=== PATIENT | female | born 1975 | race Two or more races ===

== ENCOUNTER 2018-09-03 05:31 | Emergency (ER) | payer SELFPAY ==
[~2018-09-03] VITALS: Ht 175.3 cm; Wt 58.5 kg
--- NOTE | 2018-09-03 05:53 | NUR ---
PT PRESENTED WITH C/O FEELING DEPRESSED. PT SAYS SHE DOESNT FEEL SUICIDAL BUT DOESNT WANT TO TAKE CARE OF HERSELF. PT HERE VISITING DAUGHTER IN [place] WHO DOES NOT WANT TO SEE HER, PT LIVES IN [place], [place]. PT TEARFUL, STATED SHE HAS NO MONEY OR NO WHERE TO GO. PA AT BEDSIDE FOR L[place]ELLE
[2018-09-03] MEDS ORDERED: VENL37.52 PO (05:59)
[2018-09-03] MEDS ORDERED: LITH8SOL6 PO (05:59)
[2018-09-03] MEDS ORDERED: TRAZ-137 PO (05:59)
[2018-09-03] MEDS ORDERED: INSULIN (05:59)
--- NOTE | 2018-09-03 06:07 | NUR ---
urine sample taken to lab
[2018-09-03 06:11] VITALS: BP 100/52
--- NOTE | 2018-09-03 06:12 | NUR ---
pt resting on gurney, provided pt with warm blanket, monitors in place, siderails up x2, call light within reach. awaiting urine and lab results
[2018-09-03 06:14] LABS: BASOPHILS # (AUTO) 0.03 x10^3/uL (0-0.1); BASOPHILS % (AUTO) 0 % (0-1); EOSINOPHILS # (AUTO) 0.11 x10^3/uL (0-0.4); EOSINOPHILS % (AUTO) 1 % (1-7); LYMPHOCYTES # (AUTO) 2.05 x10^3/uL (1-3.4); LYMPHOCYTES % (AUTO) 25 % (22-44); MD NO; MEAN CORPUSCULAR HEMOGLOBIN 28.3 pg (27.0-34.8); MEAN CORPUSCULAR HGB CONC 33.4 g/dL (32.4-35.8); MEAN CORPUSCULAR VOLUME 84.7 fL (80-100); MEAN PLATELET VOLUME 8.5 fL (7.4-10.4); MONOCYTES # (AUTO) 0.54 x10^3/uL (0.2-0.8); MONOCYTES % (AUTO) 7 % (2-9); NEUTROPHILS # (AUTO) 5.43 x10^3/uL (1.8-6.8); NEUTROPHILS % (AUTO) 67 % (42-75); PLATELET COUNT 433 x10^3/uL (130-400); RED BLOOD COUNT 4.36 x10^6/uL (3.82-5.3); RED CELL DISTRIBUTION WIDTH 14.6 % (9.6-15.2)
[2018-09-03 06:24] LABS: ALBUMIN 3.3 g/dL (3.4-5.0); ANION GAP 8 mmol/L (5-15); CALCIUM 8.3 mg/dL (8.5-10.1); CHLORIDE 102 mmol/L (98-107); CREATININE 0.65 mg/dL (0.55-1.02)
[2018-09-03 06:26] LABS: SALICYLATE LEVEL < 1.7 mg/dL (2.8-20.0)
[2018-09-03 06:26] LABS: AMPHETAMINE SCREEN, URINE Negative (Negative); BARBITURATE SCREEN, URINE Negative (Negative); BENZODIAZEPINE SCREEN, URINE Negative (Negative); CANNABINOID SCREEN, URINE Negative (Negative); COCAINE SCREEN, URINE Negative (Negative); METHADONE SCREEN, URINE Negative (Negative); OPIATE SCREEN, URINE Negative (Negative)
[2018-09-03 06:27] LABS: ACETAMINOPHEN < 2 mcg/mL (10-30)
--- NOTE | 2018-09-03 06:48 | NUR ---
PT REFUSING IV SITE, PT STATED " I WILL JUST DRINK FLUIDS TO HYDRATE", PA UPDATED, ORDER RECEIVED FOR PO FLUIDS.
--- NOTE | 2018-09-03 06:54 | NUR ---
PT REFUSING INSULIN, PT STATED " I WILL JUST TAKE MY OWN INSULIN", PT TOOK INSULIN PEN OUT OF HER PURSE, INFORMED PT THAT HOSPITAL POLICY IS PT NOT TO TAKE HOME MEDICATIONS WITHOUT MD ORDER, PT AGREED TO TALK WITH MD REGARDING INSULIN. PA UPDATED AND AT PT'S BEDSIDE, PT STATED " I'M LEAVING I CAME HERE FOR DEPRESSION AND YOUR WORRIED ABOUT A 400 BLOOD SUGAR", PA DISCUSSED POC WITH PT, PT CONTINUES TO WANT TO LEAVE. PT SIGNED AMA FORM.
[2018-09-03] MEDS ORDERED: INSULIN REGULAR 100 UNITS/ML, 3ML VIAL SQ-INSULIN SCH (07:00)
[2018-09-03] MEDS ORDERED: INSULIN REGULAR 100 UNITS/ML, 3ML VIAL IVPush ONE (07:00)
[2018-09-03] MEDS ORDERED: SODIUM CHLORIDE 0.9% 1,000ML IVBOLUS ONE (07:00)
== END 2018-09-03 06:59 | disposition left against medical advice (07) ==
LOC: ED 06:30
DX: F32.9 Major depressive disorder, single episode, unspecified (principal); E11.65 Type 2 diabetes mellitus with hyperglycemia; Z59.0 Homelessness; Z90.710 Acquired absence of both cervix and uterus; Z79.899 Other long term (current) drug therapy; Z79.4 Long term (current) use of insulin
CPT/HCPCS: 36415; 80048; 80307; 80329; 82040; 85025; 99284; G0480